=== PATIENT | female | born 1985 | race Caucasian/White ===

== ENCOUNTER 2023-02-01 11:48 | Emergency (ER) | payer OTHER, SELFPAY ==
--- NOTE | ~2023-02-01 | US_ITS ---
EXAMINATION: US OB transvaginal DATE: 02/01/2023 15:56 INDICATION: Pelvic pain. Bleeding for 6 weeks. TECHNIQUE: Real-time transvaginal and transabdominal obstetric ultrasound. FINDINGS: No prior studies for comparison. The uterus measures 8.3 x 3.9 x 4.9 cm. There is an intrauterine gestational sac containing a yolk sa c. pole identified with crown-rump length measuring 2.23 cm corresponding to 5 week 5 day gesta tion. No evidence for heart motions likely due to early gestational age. No evidence for heart motions. Ovaries within normal limits. No free fluid in the pelvis. IMPRESSION: 1. Intrauterine gestational sac containing yolk sac and pole corresponding to 5 week 5 day gest ation (JESSICA 09/29/2023). No heart motions detected likely due to early gestational age. Recommend follow-up with serial quantitative beta-hCG levels and ultrasound as clinically warranted. Reviewed, dictated and finalized at location [facility] IMPRESSION: 1. Intrauterine gestational sac containing yolk sac and pole correspondin g to 5 week 5 day gestation (JESSICA 09/29/2023). No heart motions detected li isaias due to early gestational age. Recommend follow-up with serial quantitative beta-hCG levels and ultrasound as clinically warranted.
[2023-02-01 12:19] VITALS: BP 132/64; PULSE 102; RESP 16; TEMP 36.9; O2SAT 100
--- NOTE | 2023-02-01 14:58 | ED.PREGNANCY ---
HPI - General Chief complaint: Vaginal Bleeding <Justina Sommers APRN - Last Filed: 02/01/23 15:01> Stated complaint: 6 weeks , vag bleed <Justina Sommers APRN - Last Filed: 02/01/23 15:01> Time Seen by Provider: 02/01/23 17:47 <Justina Sommers APRN - Last Filed: 02/01/23 15:01> Source: patient and family (significant other) <Justina Sommers APRN - Last Filed: 02/01/23 15:01> RN notes reviewed <Maral Redd MD - Last Filed: 02/01/23 22:24> Mode of arrival: ambulatory <Justina Sommers APRN - Last Filed: 02/01/23 15:01> Limitations: no limitations <Justina Sommers APRN - Last Filed: 02/01/23 15:01> History of Present Illness HPI Narrative: Patient is a very pleasant 37-year-old female with no significant past medical history presents emergency department today ambulatory with spouse for evaluation of pelvic pain, vaginal bleeding approx 6.5 weeks . This started this morning around 6:00 a.m.. It started as just a little bit of spotting but it is increased and more like an irregular period. She has not seen OBGYN yet and has not had any ultrasound. She lives in [place], is here over the holidays. This is her 1st . She denies any fever, chills. She has mild nausea but no vomiting. <Justina Sommers APRN - Last Filed: 02/01/23 15:01> Patient is a very pleasant 37-year-old female with no significant past medical history presents emergency department today ambulatory with spouse for evaluation of pelvic pain, vaginal bleeding approx 6.5 weeks . This started this morning around 6:00 a.m.. It started as just a little bit of spotting but it is increased and more like an irregular period. She has not seen OBGYN yet and has not had any ultrasound. She lives in [place], is here over the holidays. This is her 1st . She denies any fever, chills. She has mild nausea but no vomiting. 6 weeks GA by LMP <Maral Redd MD - Last Filed: 02/01/23 22:24> Review of Systems Review of Systems: CONSTITUTIONAL: Denies fever, chills, or sweats. CARDIOVASCULAR: Denies chest pain, palpitations, or edema. RESPIRATORY: Denies cough or dyspnea. GASTROINTESTINAL: +lower pelvic/abdominal pain. + nausea. denies diarrhea. GENITOURINARY: +vaginal bleeding/spotting. Denies dysuria or hematuria. SKIN: Denies rash or itching. MUSCULOSKELETAL: Denies back pain, joint pain, or myalgia. NEUROLOGIC: Denies headache, numbness, or weakness. PSYCHIATRIC: Denies anxiety or depression. <Justina Sommers APRN - Last Filed: 02/01/23 15:01> All systems reviewed & are unremarkable except as noted in HPI and below <Justina Sommers APRN - Last Filed: 02/01/23 15:01> PMFSH Past Medical History Medical History: Medical History (Updated 02/01/23 @ 18:26 by Maral Redd MD) Patient denies medical problems <Justina Sommers APRN - Last Filed: 02/01/23 15:01> Social History Social History: Social History (Updated 02/01/23 @ 18:22 by Maral Redd MD) Smoking status: Never smoker <Justina Sommers APRN - Last Filed: 02/01/23 15:01> Exam Narrative: BRIEF FOCUSED EXAM: patient tearful on examination, respirations regular and non-labored, no acute distress noted, mild tenderness to power abdomen/pelvic region. no rebound/guarding noted. <Justina Sommers APRN - Last Filed: 02/01/23 15:01> Const: General: no acute distress and alert <Maral Redd MD - Last Filed: 02/01/23 22:24> Nutritional Appearance: well nourished <Maral Redd MD - Last Filed: 02/01/23 22:24> Orientation/consciousness: patient oriented x3 <Maral Redd MD - Last Filed: 02/01/23 22:24> HENMT: Head: normal to inspection <Maral Redd MD - Last Filed: 02/01/23 22:24> Eyes: EOM: EOMs intact bilaterally <Maral Redd MD - Last Filed: 02/01/23 22:24> Resp: Effort & Inspection: normal respiratory effort <Maral Redd MD - Last
[2023-02-01 15:20] LABS: Basophils Percent Auto 0.1 % (0.2-1.2); Eosinophils Percent Auto 0.1 % (0-4.4); Hematocrit 40.2 % (37.0-47.0); Hemoglobin 13.8 g/dL (12.0-15.0); Immature Granulocyte Absolute 0.02 K/mm3 (0.00-0.031); Immature Granulocyte Percent A 0.3 % (0-0.5); Lymphocytes Absolute Auto 1.46 K/mm3 (0.9-3.2); Lymphocytes Percent Auto 19.4 % (18.3-44.2); Mean Corpuscular HGB Conc 34.3 g/dl (32-36); Mean Corpuscular Hemoglobin 31.5 pg (26-34); Mean Corpuscular Volume 91.8 fl (80-100); Mean Platelet Volume 10.4 fl (7.4-10.4); Monocytes Absolute Auto 0.5 K/mm3 (0.1-0.6); Neutrophils Absolute Auto 5.6 K/mm3 (1.3-6.7); Neutrophils Percent Auto 74.1 % (45.5-73.1); Platelet Count Result 271 k/mm3 (150-375); Red Blood Count 4.38 M/mm3 (4.2-5.4); Red Cell Distribution Width 11.3 % (11.5-14.5); White Blood Count 7.5 K/mm3 (4.5-10.0)
[2023-02-01 15:29] LABS: Alanine Aminotransferase 25 U/L (6-35); Albumin Level 4.6 g/dL (3.5-5.1); Alkaline Phosphatase 62 U/L (38-126); Anion Gap 12 mmol/L (8-16); Aspartate Amino Transferase 30 U/L (14-36); Bilirubin,Total 1.5 mg/dL (0.2-1.3); Blood Urea Nitrogen 11 mg/dL (7-17); Calcium 9.6 mg/dL (8.4-10.2); Carbon Dioxide 20 mmol/L (22-30); Chloride 104 mmol/L (98-107); Estimated CRCL calculation 78 ml/min; Estimated Glomerular Filt Rate > 60; Glucose 102 mg/dL (65-110); Potassium 3.8 mmol/L (3.4-5.0); Sodium 136 mmol/L (137-145)
[2023-02-01 15:30] LABS: Appearance Urine Clear (Clear); Bacteria Urine None Seen /hpf; Bilirubin Urine Negative (Negative); Blood Urine 1+ (Negative); Color Urine Yellow (Yellow); Glucose Urine UA Negative (Negative); Ketones Urine 1+ mg/dL (Negative); Leukocyte Esterase Ur Negative LEU/UL (Negative); Nitrate Urine Negative (Negative); Non Pathogenic Casts 0-2; Protein Urine Negative (Negative); RBC Urine 0-2 /hpf (0-2); Specific Grav Ur 1.007 (1.001-1.035); Squamous Epithelial Cell Urine None seen /hpf (Few); Urobilinogen Urine 0.2 mg/dL (<2.0); WBC Urine 0-5 /hpf; pH Urine 7.5 (5.0-9.0)
[2023-02-01 15:33] LABS: Add Urine Microscopic? YES
--- NOTE | 2023-02-01 18:21 | PC.NURSE ---
pelvic exam by provider with designer/writer at bedside
[2023-02-01 18:47] VITALS: BP 112/70; PULSE 74; RESP 16; O2SAT 100
== END 2023-02-01 18:49 | disposition home or self-care (01) ==
PROVIDERS: Nurse Practitioner; Emergency Provider General Practice
DX: O20.0 Threatened abortion (principal); Z3A.01 Less than 8 weeks gestation of pregnancy
CPT/HCPCS: 36415; 76817; 80053; 81001; 84702; 85025; 85461; 86850; 86900; 86901; 99284